=== PATIENT | male | born 1985 | race Hispanic/Latino ===

== ENCOUNTER 2022-09-19 18:22 | Emergency (ER) | payer BC ==
[2022-09-19] MEDS ORDERED: NA CHLORIDE 0.9% 1,000 ML ONE (18:45)
[2022-09-19] MEDS ORDERED: LABETALOL 20 MG/4ML SYRINGE IV ONE (19:14)
[2022-09-19] MEDS ORDERED: ONDANSETRON 4 MG/2 ML VIAL ONE (19:26)
[2022-09-19 19:27] LABS: Protime INR 0.99
[2022-09-19 19:35] LABS: Absolute Lymphocytes (CBC) 1.6 K/uL (0.7-4.9); Hematocrit 41.6 % (39.6-49.0); Lymphocytes % 24.2 % (15.3-44.8); MPV 9.2 fL (7.6-11.3); RBC Red Blood Cell Count 4.95 M/uL (4.33-5.43)
[2022-09-19 19:37] LABS: Potassium 3.4 mmol/L (3.5-5.1)
[2022-09-19] MEDS ORDERED: NA CHLORIDE 0.9% 100 ML IV ONE (19:53)
[2022-09-19] MEDS ORDERED: TRANEXAMIC ACID 1,000 MG/10 ML VIAL IV ONE (19:53)
--- NOTE | 2022-09-19 20:09 | EDPHYS ---
Physician Documentation [facility] Name: Ángel Simon Age: 37 yrs Sex: Male : 1985 Arrival Date: 09/19/2022 Time: 18:24 Bed 18 Private MD: ED Physician Shiva Murray HPI: 09/19 18:35 This 37 yrs old Male presents to ER via Ambulatory with complaints of Nose cp Bleed. 18:35 The patient presents with a nose bleed. Onset: The symptoms/episode began/occurred cp today, 1 hour(s) ago. Associated signs and symptoms: Pertinent negatives: chest pain, fever, lightheadedness, shortness of breath. 18:35 Patient reports nose bleed started after episode of sneezing. cp Historical: - Allergies: 18:34 No Known Allergies; ap3 - PMHx: 18:34 ADHD; Anxiety; nosebleeds; ap3 - PSHx: 18:34 multiple GI sx; nasal sx; ap3 - Immunization history:: Client reports receiving the 2nd dose of the Covid vaccine, Flu vaccine is not up to date. - Social history:: Smoking status: Patient denies any tobacco usage or history of. Patient uses alcohol, occasionally. ROS: 18:40 Constitutional: Negative for body aches, chills, fever, poor PO intake. cp 18:40 Eyes: Negative for injury, pain, redness, and discharge. cp 18:40 ENT: Positive for nose bleed, Negative for drainage from ear(s), ear pain, difficulty swallowing, difficulty handling secretions. 18:40 Cardiovascular: Negative for chest pain, edema, palpitations. 18:40 Respiratory: Negative for cough, shortness of breath, wheezing. 18:40 Abdomen/GI: Negative for abdominal pain, nausea, vomiting, and diarrhea, constipation. 18:40 Skin: Negative for cellulitis, rash. 18:40 Neuro: Positive for dizziness, Negative for altered mental status, headache, loss of consciousness, syncope, weakness. 18:40 All other systems are negative. Exam: 18:45 Constitutional: The patient appears in no acute distress, alert, awake, cp non-diaphoretic, non-toxic, well developed, well nourished. 18:45 Head/Face: Normocephalic, atraumatic. cp 18:45 Eyes: Periorbital structures: appear normal, Conjunctiva: normal, no exudate, no injection, Sclera: no appreciated abnormality, Lids and lashes: appear normal, bilaterally. 18:45 ENT: External ear(s): are unremarkable, Ear canal(s): are normal, clear, TM's: dullness, bilaterally, Nose: External nose: no obvious acute abnormality, bleeding, is noted from both nares, and is moderate, nasal passages with packing in place, Mouth: Lips: moist, Oral mucosa: pink and intact, moist, Posterior pharynx: bloody drainage noted. 18:45 Neck: ROM/movement: is normal, is supple, without pain, no range of motions limitations. 18:45 Chest/axilla: Inspection: normal. 18:45 Cardiovascular: Rate: tachycardic, Rhythm: regular. 18:45 Respiratory: the patient does not display signs of respiratory distress, Respirations: normal, no use of accessory muscles, no retractions, labored breathing, is not present, Breath sounds: are clear throughout, no decreased breath sounds, no stridor, no wheezing. 18:45 Abdomen/GI: Inspection: abdomen appears normal, Bowel sounds: active, all quadrants, Palpation: abdomen is soft and non-tender, in all quadrants. 18:45 Neuro: Orientation: to person, place \T\ time. Mentation: is normal, Cerebellar function: is grossly normal, Motor: moves all fours, strength is normal, Sensation: is normal. Vital Signs: 18:31 BP 166 / 85; Pulse 102; Resp 18; Temp 98.4; Pulse Ox 100% ; Weight 72.57 kg; Height 5 ap3 ft. 4 in. (162.56 cm); 19:08 BP 157 / 102; vg1 22:10 BP 144 / 85; kl 22:29 BP 132 / 85; Pulse 77; Resp 16; Pulse Ox 99% on R/A; kl 18:31 Body Mass Index 27.46 (72.57 kg, 162.56 cm) ap3 MDM: 18:34 Patient medically screened. cp 19:00 Differential diagnosis: trauma, epistaxis r/t trauma, spontaneous epistaxis, anemia. cp 20:25 Data reviewed: vital signs, nurses notes, lab test result(s). cp 20:25 Response to treatment: the patient's symptoms have markedly improved after treatment, cp bleeding controlled. 09/19 18:35 Order name: Basic Metabolic Panel; Complete Time: 19:45 cp 09/19 20:23 Interpretation: Normal except: K 3.4; GLUC 121. cp 09/19 18:35 Order name: CBC with Diff; Complete Time: 19:45 cp 09/19 20:24 Interpretation: Normal except: EOSINOPHIL % 8.7; EOSA 0.6. cp 09/19 18:35 Order name: PT-INR; Complete Time: 19:45 cp 09/19 20:24 Interpretation: Reviewed. cp 09/19 18:35 Order name: Ptt, Activated; Complete Time: 19:45 cp 09/19 20:24 Interpretation: Reviewed. cp 09/19 19:34 Order name: LAB Add On cp 09/19 18:35 Order name: EKG; Complete Time: 18:35 cp 09/19 18:35 Order name: Cardiac monitoring; Complete Time: 19:10 cp 09/19 18:35 Order name: EKG - Nurse/Tech; Complete Time: 19:10 cp 09/19 18:35 Order name: IV Saline Lock; Complete Time: 19:11 cp 09/19 18:35 Order name: Labs collected and sent; Complete Time: 19:11 cp 09/19 18:35 Order name: O2 Per Protocol; Complete Time: 18:41 cp 09/19 18:35 Order name: O2 Sat Monitoring; Complete Time: 18:41 cp Administered Medications: 19:14 Drug: NS 0.9% 1000 ml Route: IV; Rate: 1 bolus; Site: right antecubital; vg1 20:15 Follow up: IV Status: Completed infusion; IV Intake: 1000ml kl 19:15 Drug: Labetalol 10 mg {Note: BP 150/102 pulse 88.} Route: IV; Rate: per protocol; kl Infused Over: 2 mins; Site: right antecubital; 19:25 Drug: Zofran (Ondansetron) 4 mg Route: IVP; Site: right antecubital; kl 22:10 Follow up: Response: No adverse reaction kl 19:45 Drug: Tranexamic Acid 1000 mg Route: IV; Rate: calculated rate; Site: right antecubital;kl 22:09 Follow up: IV Status: Infusion continued; IV Intake: 100ml kl 20:15 Drug: Labetalol 20 mg {Note: BP 139/98.} Route: IV; Rate: per protocol; Infused Over: 2 kl mins; Site: right antecubital; 22:10 Follow up: Response: No adverse reaction; Marked relief of symptoms kl 20:43 Drug: Phenergan (promethazine) 12.5 mg Route: IVP; Site: right antecubital; kl 22:09 Follow up: Response: No adverse reaction; Marked relief of symptoms kl 20:44 Not Given (Other Intervention Used; pt nauseatedd): Labetalol 100 mg PO once kl Disposition: 20:35 Co-signature as Attending Physician, Shiva Murray MD I agree with the assessment and valentina plan of care. 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) valentina - Essential (primary) hypertension valentina Forms: - Medication Reconciliation Form cp - SBAR form cp Signatures: Dispatcher [employer] Pratima Aquino RN RN kl Anderson, Corey, MD MD cha Page, Corey, Elzbieta Murphy cp RN RN ap3 Jennifer Purdy RN RN vg1 Keli Cheung PANestor PAGloC sb4 Corrections: (The following items were deleted from the chart) 20:27 20:08 Doctor cp cp 20:27 20:08 Hypertensive heart disease without heart failure cp cp 20:35 20:08 Epistaxis cp valentina 20:35 20:27 Doctor harley valentina 20:35 20:35 Doctor valentina valentina 23:05 20:35 Doctor JUN montgomery kl 09/20 22:38 12 18:35 Patient reports nose bleed started after episode of sneezing. . cp cp
--- NOTE | 2022-09-19 20:09 | ER ---
Nurse's Notes [facility] Name: Ángel Simon Age: 37 yrs Sex: Male : 1985 Arrival Date: 09/19/2022 Time: 18:24 Bed 18 Private MD: Diagnosis: Epistaxis-posterior, heavy, hx of invereted papilloma;Essential (primary) hypertension Presentation: 09/19 18:31 Chief complaint: Patient states: he was sent by [facility] for continued nose bleed. patient ap3 comes from [place] with DANIEL rhino rockets in his nose. Coronavirus screen: At this time, the client does not indicate any symptoms associated with coronavirus-19. Ebola Screen: No symptoms or risks identified at this time. Initial Sepsis Screen: Does the patient meet any 2 criteria? No. Patient's initial sepsis screen is negative. Does the patient have a suspected source of infection? No. Patient's initial sepsis screen is negative. Risk Assessment: Do you want to hurt yourself or someone else? Patient reports no desire to harm self or others. Onset of symptoms was September 19, 2022 at 17:00. 18:31 Method Of Arrival: Ambulatory ap3 18:31 Acuity: MELISSA 3 ap3 19:47 Note pt became diaphoretic nauseated emesis of approx 300cc bloody emesis ice pack kl applied to to bridge of nose MD updated. Triage Assessment: 18:34 General: Appears uncomfortable, Behavior is cooperative, anxious. Pain: Denies pain. ap3 EENT: Nares with bleeding noted bilaterally with rhino rockets in place in bilateral nares. Neuro: Level of Consciousness is awake, alert, obeys commands, Oriented to person, place, time, situation, Appropriate for age Gait is steady, Speech is normal. Cardiovascular: Patient's skin is warm and dry. Respiratory: Airway is patent Respiratory effort is even, unlabored, Respiratory pattern is regular, symmetrical. Historical: - Allergies: 18:34 No Known Allergies; ap3 - PMHx: 18:34 ADHD; Anxiety; nosebleeds; ap3 - PSHx: 18:34 multiple GI sx; nasal sx; ap3 - Immunization history:: Client reports receiving the 2nd dose of the Covid vaccine, Flu vaccine is not up to date. - Social history:: Smoking status: Patient denies any tobacco usage or history of. Patient uses alcohol, occasionally. Screenin:30 [facility] ED Fall Risk Assessment (Adult) History of falling in the last 3 months, vg1 including since admission No falls in past 3 months (0 pts) Confusion or Disorientation No (0 pts) Intoxicated or Sedated No (0 pts) Impaired Gait No (0 pts) Mobility Assist Device Used No (0 pt) Altered Elimination No (0 pt) Score/Fall Risk Level 0 - 2 = Low Risk Oriented to surroundings, Maintained a safe environment, Educated pt \T\ family on fall prevention, incl call for assistance when getting out of bed, Assessed \T\ reinforced patient's understanding of fall precautions. 18:35 Abuse screen: Denies threats or abuse. Nutritional screening: No deficits noted. ap3 Tuberculosis screening: No symptoms or risk factors identified. 23:04 Fall Risk No fall in past 12 months (0 pts). Assessment: 18:30 General: Appears in no apparent distress. uncomfortable, Behavior is cooperative. Pain: vg1 Denies pain. Neuro: Level of Consciousness is awake, alert, obeys commands, Oriented to person, place, time, situation. Cardiovascular: Capillary refill < 3 seconds in bilateral fingers Patient's skin is warm and dry. Respiratory: Airway Rhinorocket placed by Wren Respiratory effort is even, unlabored. GI: No signs and/or symptoms were reported involving the gastrointestinal system. : No signs and/or symptoms were reported regarding the genitourinary system. EENT: Nares with bleeding noted bilaterally. Derm: Skin is pink, warm \T\ dry. Musculoskeletal: Circulation, motion, and sensation intact. 18:40 Reassessment: DR LLANES AT BEDSIDE. vg1 19:21 Reassessment: pt bleeding through packing dressing reinforced MD notified . kl 22:09 Reassessment: Patient appears in no apparent distress at this time. Patient and/or kl family updated on plan of care and expected duration. Pain level reassessed. Patient is alert, oriented x 3, equal unlabored respirations, skin warm/dry/pink. Patient denies pain at this time. Patient states symptoms have improved. no further bleeding noted. 22:28 Reassessment: Patient appears in no apparent distress at this time. Patient and/or kl family updated on plan of care and expected duration. Pain level reassessed. Patient is alert, oriented x 3, equal unlabored respirations, skin warm/dry/pink. Patient states feeling better. Vital Signs: 18:31 BP 166 / 85; Pulse 102; Resp 18; Temp 98.4; Pulse Ox 100% ; Weight 72.57 kg; Height 5 ap3 ft. 4 in. (162.56 cm); 19:08 BP 157 / 102; vg1 22:10 BP 144 / 85; kl 22:29 BP 132 / 85; Pulse 77; Resp 16; Pulse Ox 99% on R/A; kl 18:31 Body Mass Index 27.46 (72.57 kg, 162.56 cm) ap3 ED Course: 18:24 Patient arrived in ED. as 18:25 Shiva Ingram PA is PHCP. cp 18:25 Rickey Gee MD is Attending Physician. cp 18:28 Jennifer Purdy, RN is Primary Nurse. vg1 18:34 Triage completed. ap3 18:36 Arm band placed on right wrist. ap3 18:36 Patient has correct armband on for positive identification. Bed in low position. Call ap3 light in reach. Side rails up X 1. Pulse ox on. NIBP on. Door closed. Noise minimized. 19:05 Attending Physician role handed off by Rickey Gee MD [facility] 19:05 Shiva Murray MD is Attending Physician. [facility] 19:11 Inserted saline lock: 20 gauge in right antecubital area, using aseptic technique. vg1 ,using aseptic technique. [facility] by [facility] Blood collected. 20:08 Dr. Murray initiated transfer to [facility], spoke with Susan Doe. 21:49 Pt accepted for transfer by Joe Bonilla to the ER. 23:04 No provider procedures requiring assistance completed. Patient transferred, IV remains kl in place. Administered Medications: 19:14 Drug: NS 0.9% 1000 ml Route: IV; Rate: 1 bolus; Site: right antecubital; vg1 20:15 Follow up: IV Status: Completed infusion; IV Intake: 1000ml kl 19:15 Drug: Labetalol 10 mg {Note: BP 150/102 pulse 88.} Route: IV; Rate: per protocol; kl Infused Over: 2 mins; Site: right antecubital; 19:25 Drug: Zofran (Ondansetron) 4 mg Route: IVP; Site: right antecubital; kl 22:10 Follow up: Response: No adverse reaction kl 19:45 Drug: Tranexamic Acid 1000 mg Route: IV; Rate: calculated rate; Site: right antecubital;kl 22:09 Follow up: IV Status: Infusion continued; IV Intake: 100ml kl 20:15 Drug: Labetalol 20 mg {Note: BP 139/98.} Route: IV; Rate: per protocol; Infused Over: 2 kl mins; Site: right antecubital; 22:10 Follow up: Response: No adverse reaction; Marked relief of symptoms kl 20:43 Drug: Phenergan (promethazine) 12.5 mg Route: IVP; Site: right antecubital; kl 22:09 Follow up: Response: No adverse reaction; Marked relief of symptoms kl 20:44 Not Given (Other Intervention Used; pt nauseatedd): Labetalol 100 mg PO once kl Medication: 18:30 VIS not applicable for this client. vg1 Intake: 20:15 IV: 1000ml; Total: 1000ml. kl 22:09 IV: 100ml; Total: 1100ml. kl Outcome: 20:08 ER care complete, transfer ordered by . cp 23:04 Transferred by ground EMS to [facility]. kl 23:04 Condition: stable 23:04 Discharge instructions given to patient, Instructed on the need for transfer, Demonstrated understanding of instructions. 23:05 Patient left the ED. kl Signatures: Pratima Camejo RN RN kl Anderson, Corey, MD MD cha Martinez, Amelia as Page, Corey, PA PA cp Prokisch, Amanda, RN RN ap3 Jennifer Purdy RN RN vg1 Cristin Burton
[2022-09-19] MEDS ORDERED: PROMETHAZINE INJ 25 MG/ML AMP ONE (20:34)
[2022-09-19 23:15] VITALS: TEMP 98.4
[2022-09-19 23:31] VITALS: BP 132/85; O2SAT 99
--- NOTE | 2022-09-20 12:51 | EKG ---
Test Date: 2022-09-19 Test Time: 19:04:06 Pulmonologist Intensivist: ALP MEASUREMENT RESULTS: Intervals: Rate: 98 SC: 138 QRSD: 92 QT: 338 QTc: 431 [place]: P: 65 SC: 138 QRS: 67 T: 23 INTERPRETIVE STATEMENTS: Normal sinus rhythm Normal ECG No previous ECG available for comparison Electronically Signed On 09-20-22 12:51:14 DEPENDENCY PROGRAM DIRECTOR by Alo Paez
== END 2022-09-19 23:05 | disposition short-term general hospital (02) ==
LOC: ER 18:22
DX: R04.0 Epistaxis (principal); I10 Essential (primary) hypertension; D36.9 Benign neoplasm, unspecified site
CPT/HCPCS: 96365; 96361; 93005; 85025; 80048; 36415; 85610; 85730; 96375; 99285; 96366; J2550; J7030; J2405